=== PATIENT | male | born 1995 | race Caucasian/White ===

== ENCOUNTER 2025-08-04 10:46 | Emergency (ER) | payer SELFPAY ==
[~2025-08-04] VITALS: Ht 170.2 cm; Wt 75.0 kg
[2025-08-04 10:56] VITALS: TEMP 36.6; O2SAT 97
[2025-08-04 12:35] LABS: BASOPHILS % 0.5 % (0.0-2.0); EOSINOPHILS % 0.4 % (0.0-5.0); HEMATOCRIT. 43.9 % (42.0-52.0); HEMOGLOBIN. 14.4 g/dL (14.0-18.0); LYMPHOCYTES % 25.4 % (20.0-50.0); MEAN PLATELET VOLUME 9.9 fl (7.4-10.4); MONOCYTES % 6.6 % (2.0-8.0); NEUTROPHILS % 67.1 % (40.0-76.0); PLATELET 180 x1000/uL (130-400); RED BLOOD CELL COUNT 5.01 mill/uL (4.7-6.1); RED CELL DISTRIBUTION WIDTH 14.0 % (11.6-14.6)
[2025-08-04 12:50] LABS: CREATININE 0.8 mg/dL (0.6-1.3); UREA NITROGEN BLOOD 6 mg/dL (9-23)
[2025-08-04 12:51] LABS: ASPARTATE AMINOTRANSFERASE 29 IU/L (<34); TROPONIN I HIGH SENSITIVITY 5 ng/L (3.0-53)
[2025-08-04 12:52] LABS: BILIRUBIN DIRECT 0.5 mg/dL (<=3.0); BILIRUBIN TOTAL 2.0 mg/dL (0.1-1.0); PROTEIN TOTAL 7.2 g/dL (6.0-8.3)
[2025-08-04 13:10] VITALS: BP 110/68; PULSE 65; RESP 17; O2SAT 99
[2025-08-04] MEDS ORDERED: OMEP20TA23 MT (13:25)
[2025-08-04] MEDS ORDERED: SUCR1TAB MT (13:25)
== END 2025-08-04 13:44 | disposition home or self-care (01) ==
LOC: ER 10:46
DX: K21.9 Gastro-esophageal reflux disease without esophagitis (principal); Z79.899 Other long term (current) drug therapy
CPT/HCPCS: 36415; 71045; 80048; 80076; 80320; 83735; 84484; 85025; 93005; 99285; G0480